=== PATIENT | female | born 2000 | race Caucasian/White ===

== ENCOUNTER 2020-04-29 17:29 | Emergency (ER) | payer OTHER, BC, MEDICAID ==
[~2020-04-29] VITALS: Ht 167.6 cm; Wt 56.8 kg
[2020-04-29 17:36] VITALS: TEMP 98.2
[2020-04-29 18:21] LABS: BASO % 0.3 % (0.0-2.0); EOS # 0.1 (0.0-0.7); GRAN # 7.4 (1.4-6.5); GRAN % 70.1 % (42.2-75.2); HEMATOCRIT 39.9 % (37.0-47.0); HEMOGLOBIN 13.3 g/dl (12.5-16.0); LYMPH # 2.2 (1.2-3.4); LYMPH % 20.7 % (20.0-51.0); MEAN CELL VOLUME 95 fl (80.0-100.0); MEAN CORPUSCULAR HEMOGLOBIN 32 pg (27.0-31.0); MEAN CORPUSCULAR HGB CONC 33 g/dl (33.0-37.0); MEAN PLATELET VOLUME 10.4 fl (7.4-10.4); MONO # 0.8 (0.1-0.6); MONO % 7.5 % (1.7-9.3); PLATELET COUNT 233 K/mm3 (130-400); RED BLOOD COUNT 4.21 M/mm3 (4.10-5.30); REDCELL DISTRIBUTION WIDTH-CV 12.9 % (11.5-14.5)
[2020-04-29 18:32] LABS: ALBUMIN 4.3 gm/dL (3.5-5.0); BILIRUBIN,TOTAL 2.6 mg/dL (0.0-1.0); CALCIUM 9.4 mg/dL (8.4-10.2); CREATININE, serum 0.6 (0.52-1.25); POTASSIUM 4.2 mmol/L (3.4-5.0); TOTAL PROTEIN 7.3 gm/dL (6.4-8.2)
[2020-04-29 20:28] VITALS: BP 113/81; PULSE 59
== END 2020-04-29 20:25 | disposition home or self-care (01) ==
LOC: COL.ER 17:29
PROVIDERS: Physician Assistant
DX: K59.00 Constipation, unspecified (principal); K29.70 Gastritis, unspecified, without bleeding
CPT/HCPCS: Q9967